=== PATIENT | male | born 1985 | race Caucasian/White ===

== ENCOUNTER 2025-08-22 13:41 | Emergency (ER) | payer MEDICAID, SELFPAY ==
--- OUTSIDE RECORDS SUMMARY | 2014-06-23 09:30 | XMS_ITS | Continuity of Care Document ---
Author Organization [facility] Address [address] [place] [address] Phone Care Team Providers Care Shop Router Name Role Phone Unavailable Unavailable Unavailable Allergies, Adverse Reactions, Alerts Substance Reaction Status Criticality No Known allergies Medications Medication Instructions Dosage Effective Dates (start - stop) Status Comments Aldara 5 % topical cream packet apply by topical route 3 times every week to the affected area(s) Not Available - Active lisinopril 20 mg tablet take 1 tablet by oral route every day 20 MG - Active atenolol 100 mg tablet take 1 tablet by oral route every day 100 MG - Active azithromycin 500 mg tablet take 2 tablet by oral route every day for 1 day once 1000 MG - No Longer Active 1gram dose provided today c med. sheet Procedures Procedure Date OFFICE/OUTPATIENT VISIT BANNER DESTRUCT B9 LESION 1-14 CHYLMD TRACH DNA AMP PROBE N.GONORRHOEAE DNA AMP PROB Advance Directives Directive Yes / No Effective Date File Name No Information Encounters Encounter Description Practice Location Reason(s) For Visit Diagnoses Date Provider Providers Copied on Encounter OFFICE/OUTPA TIENT VISIT [facility], [address] [place], [place], [id number], [place] tel:[phone] [facility] STD exposure (chief complaint) Hypertension, BenignCVA, AcuteDepressionH eadacheHigh-risk sexual behaviorCondylom a acuminatumTobacc o Abuse 3-201 4 No Information Family History Family Member Type Diagnosis Age At Onset Father Problem (finding) coronary arterioscleros is Father Problem (finding) raised blood lipids Father Problem (finding) Liver/GB CA Father Problem (finding) hypertension Father Problem (finding) Myocardial infarction Payers Payer name Insurance type Covered constitution party ID Authoryessy tijuan pablo(s) No Information Social History Type Description Quantity Date Captured Comments Alcohol Use Details No Caffeine Use Details Unknown Tobacco Use Status Smoking Status Current every day smoker Smoking Tobacco Use Details Cigarette: No Details Available Cigarette: 2 Packs per day Sex Male Vital Signs Date / Time: Height Weight BMI Pulse Rate Blood Pressure Temperature Respiratory Rate Body Surface Area Head Circumference Head Circ. Percentile Wt./Med. Percentile BMI percentile Pulse Ox Inhaled Ox 1:46 PM 67.00 in 81.647 kg (180.00 lbs) 28.1 9 kg/m eter (2) 46 /min 119/74 mm[Hg] 98.40 F 16 /min Chief Complaint And Reason For Visit From encounter dated '06/23/2014 13:30'. STD exposure (chief complaint). Description: Additional information: -partner dx c CT 2mos. ago & had Tx but pt. did not. Pt. states unprotected sex c partner. Denies penile d/c, rash, burning, but +itching near groin & bumps. Denies burning c urine. Reason For Referral Reason For Referral No Information History Of Present Illness Encounter Date Complaint History Of Prese nt Illness STD exposure Additional infor mation: -partner dx c CT 2mos. ago & had Tx but pt. did not. Pt. states unprotected sex c partner. Denies penile d/c, rash, burning, but +itching near groin & bumps. Denies burning c urine. Functional Status Date Functional Assessmen t No Information Medications Administered Medication Instructions Dosage Effective Dates (start - stop) Status Comments azithromycin 500 mg tablet take 2 tablet by oral route every day for 1 day once 1000 MG - No Longer Active 1gram dose provided today c med. sheet Instructions Date Instruction Additional Infor mation No Information Assessments Type Assessment Date No Information Mental Status Date Cognitive Assessment Orientation - [place] ed to time, place, person, situation. Patient Care Teams Name Effective Dates (start - stop) Status Members No Information
--- OUTSIDE RECORDS SUMMARY | 2024-10-05 07:15 | XMS_ITS ---
Author Organization The [facility] in [place] Address [address] [place] [address] Care Team Providers Care Call Box Wirer Name Role Phone Filomena Rosado Primary Care Provider REASON FOR VISIT f/u Encounters Encounter Location Date Provider Diagnosis [address] [place] [address] 10/05/2024 Filomena Rosado Plan Of Treatment No Information Progress Notes * Gomez COBB MDOB:1985 ( 40 yo M)Acc No.[id number]:10/05/2024 UNLOCKED PROGRESS NOTE Progress Note Patient: Anna FLORENCEc Agusto Provider: Christos Rosado M.D. :1985 A ge:39 Y S ex:Male Date:10/05/2024 [facility] Subjective: * Chief Complaints: * 1 . F/u. * Medical History: Objective: * Vitals: Assessment: Plan: * Treatment: * * Electronic signature of Filomena Rosado MD on 08/22/2025 at 02:39 PM EDT Sign off status: Pending Visit Status: C ANC (Cancelled) * Provider: Christos Rosado M.D. Date: 12/05/2023 Generated for Esther tatum/Anita/eTransmitting on: 0 08/22/2025 02:39 PM EDT
--- OUTSIDE RECORDS SUMMARY | 2024-10-12 07:30 | XMS_ITS ---
Author Organization The [facility] in [place] Address [address] [place] [address] Care Team Providers Care Business Affairs Manager Name Role Phone Filomena Rosado Primary Care Provider REASON FOR VISIT f/u resched Encounters Encounter Location Date Provider Diagnosis [address] [address] 10/12/2024 Filomena Rosado Plan Of Treatment No Information Progress Notes * Gomez COBB MDOB:1985 ( 40 yo M)Acc No.[id number]:10/12/2024 UNLOCKED PROGRESS NOTE Progress Note Patient: Gomez FLORENCE Provider: Christos Rosado M.D. :1985 A ge:39 Y S ex:Male Date:10/12/2024 [facility] Subjective: * Chief Complaints: * 1 . F/u resched. * Medical History: Objective: * Vitals: Assessment: Plan: * Treatment: * * Electronic signature of Filomena Rosado MD on 08/22/2025 at 02:39 PM EDT Sign off status: Pending Visit Status: R /S (Rescheduled) * Provider: Christos Rosado M.D. Date: 12/12/2023 Generated for Ricardai ng/Fahumerag/eTransmitting on: 0 08/22/2025 02:39 PM EDT
--- OUTSIDE RECORDS SUMMARY | 2024-10-20 06:45 | XMS_ITS ---
Author Organization The [facility] in [place] Address [address] [place] [address] Care Team Providers Care Veterinarian Assistant Name Role Phone Filomena Rosado Primary Care Provider Encounters Encounter Location Date Provider Diagnosis [address] [address] 10/20/2024 Filomena Rosado Plan Of Treatment No Information Progress Notes * Gomez COBB MDOB:1985 ( 40 yo M)Acc No.[id number]:10/20/2024 UNLOCKED PROGRESS NOTE Progress Note Patient: Anna FLORENCEc Agusto Provider: Christos Rosado M.D. :1985 A ge:39 Y S ex:Male Date:10/20/2024 [facility] Subjective: * Chief Complaints: * * Medical History: Objective: * Vitals: Assessment: Plan: * Treatment: * * Electronic signature of Filomena Rosado MD on 08/22/2025 at 02:39 PM EDT Sign off status: Pending Visit Status: R /S (Rescheduled) * Provider: Christos Rosado M.D. Date: 12/20/2023 Generated for Esther tatum/Anita/eTriccardosmitting on: 0 08/22/2025 02:39 PM EDT
--- OUTSIDE RECORDS SUMMARY | 2025-03-16 07:00 | XMS_ITS ---
Author Organization [facility] in [place] Address [address] [place] [address] Care Team Providers Care Social Media Community Manager Name Role Phone Fiolmena Rosado Primary Care Provider REASON FOR VISIT 3-4 mo f/u Encounters Encounter Location Date Provider Diagnosis [address] [address] 03/16/2025 Filomena Rosado Plan Of Treatment No Information Progress Notes * Gomez COBB MDOB:1985 ( 40 yo M)Acc No.[id number]:03/16/2025 UNLOCKED PROGRESS NOTE Progress Note Patient: Gomez FLORENCE Provider: Christos Rosado M.D. :1985 A ge:40 Y S ex:Male Date:03/16/2025 [facility] Subjective: * Chief Complaints: * 1 . 3-4 mo f/u. * Medical History: Objective: * Vitals: Assessment: Plan: * Treatment: * * Electronic signature of Filomena Rosado MD on 08/22/2025 at 02:39 PM EDT Sign off status: Pending Visit Status: N /S N/C (No Show/No Charge) * Provider: Christos Rosado M.D. Date: 0 03/16/2025 Generated for Printi ng/Faxing/eTransmitting on: 0 08/22/2025 02:39 PM EDT
[2025-08-22 13:46] VITALS: BP 136/93; PULSE 85; TEMP 37.2; O2SAT 98; BMI 32.9
--- NOTE | 2025-08-22 14:00 | CT_ITS ---
The [address] [address] Patient Name: IVAN LOZA MRN: [id number] date: 1985 Sex: M Assigned Patient Location: ED.MAIN Current Patient Location: ED.MAIN Accession/Order Number: [id number] Exam Date: 08/22/2025 14:57 Report Date: 08/22/2025 15:11 At the request of: JESSI XAVIER MD Procedure: CT head/brain wo con CT BRAIN WITHOUT CONTRAST: CLINICAL HISTORY: Head injury syncope headache COMPARISON: None TECHNIQUE: Contiguous axial unenhanced images were obtained through the brain. This CT exam was performed using one or more following dose reduction techniques: Automated exposure control, adjustment of the mA and/or kV according to patient size, or use of iterative reconstruction technique. FINDINGS: There is no evidence of midline shift, intra or extra-axial fluid collection, hemorrhage or CT evidence of acute large vascular stroke. Right frontal encephalomalacia likely sequelae of prior ischemic insult. Visualized intraorbital contents appear unremarkable. Fgkr-ah-qlrmghoi sinus mural thickening. Minimal polypoid changes left maxillary sinus. Mastoids are clear. The surrounding soft tissues are normal. CT/CT head/brain wo con IMPRESSION: NO ACUTE INTRACRANIAL ABNORMALITY. Impression dictated by: Yg Tomlinson M.D. 08/22/2025 3:11 PM Dictation Location: [place] [address] Electronically authenticated by: [id number] Y Date: 08/22/2025 15:11
--- NOTE | 2025-08-22 14:00 | ECG_ITS ---
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 Measurements Intervals [place] Rate: 80 P: 55 [place]: 152 QRS: 56 QRSD: 98 T: 61 QT: 370 QTc: 406 Interpretive Statements 1100 Sinus rhythm 9110 normal ECG No previous ECG available for comparison Electronically Signed On 08-22-2025 14:02:44 EDT by ORLIN CARUSO M.D.
--- NOTE | 2025-08-22 14:01 | ED.GENADUL1 ---
HPI HPI - General Adult General Chief complaint: Syncope Stated complaint: VERTIGO Time Seen by Provider: 08/22/25 13:51 Source: patient and family Mode of arrival: ambulance Limitations: no limitations History of Present Illness HPI narrative: 40-year-old male presented to the emergency department for an injury to his head. He was reaching under a car seat to get something and when he came up he hit the right side of his head on the corner of the door causing a laceration. His states he then went down. She states he did not pass out. No vomiting or unusual behavior and he does not have any neck pain. No other injury was sustained and this happened just before coming into the emergency department. Related Data Allergies Allergy/AdvReac Type Severity Reaction Status Date / Time venlafaxine (From Effexor) Allergy Severe syncope Verified 08/22/25 13:46 Review of Systems ROS Narrative A ten point review of systems is negative except as noted above. PFSH PFSH Social History Little interest or pleasure in doing things: not at all Feeling down, depressed, or hopeless: not at all Exam Narrative Exam Narrative: Nurses note and vital signs reviewed and patient is not hypoxic. General: The patient appears in no apparent distress. Patient is resting on cart. Skin: Warm, dry, no pallor noted. There is no rash noted. Head: Normocephalic, head has circumferential dressing in place. Upon removal he has a 2.5 cm laceration in the right temporal area. No other wounds are present. Eye: Normal conjunctiva, no drainage Ears, Nose, Mouth, and Throat: oral mucosa is moist. Nares patent. Cardiovascular: Regular Rate and Rhythm Respiratory: Patient is in no distress, no accessory muscle use, lungs are clear to auscultation, no wheezing, rales or rhonchi Back: non-tender, including the cervical spine GI: Soft and nontender Musculoskeletal: The patient has no evidence of calf tenderness, no pitting edema, symmetrical pulses noted bilaterally Neurological: A&O, normal speech; upper and lower extremity strength 5 out of 5 and symmetric Psychiatric: Cooperative Constitutional Vital Signs, click to edit/add: Last Vital Signs Temp 98.9 F 08/22/25 13:46 Pulse 85 08/22/25 13:46 Resp 18 08/22/25 13:46 BP 136/93 H 08/22/25 13:46 Pulse Ox 98 08/22/25 13:46 O2 Del Method Room Air 08/22/25 13:46 Course Vital Signs Vital signs: Vital Signs Temperature 98.9 F 08/22/25 13:46 Pulse Rate 85 08/22/25 13:46 Respiratory Rate 18 08/22/25 13:46 Blood Pressure 136/93 H 08/22/25 13:46 Pulse Oximetry 98 08/22/25 13:46 Oxygen Delivery Method Room Air 08/22/25 13:46 Temperature 98.9 F 08/22/25 13:46 Pulse Rate 85 08/22/25 13:46 Respiratory Rate 18 08/22/25 13:46 Blood Pressure 136/93 H 08/22/25 13:46 Pulse Oximetry 98 08/22/25 13:46 Oxygen Delivery Method Room Air 08/22/25 13:46 Medical Decision Making MDM Narrative Medical decision making narrative: CT brain shows no acute findings. 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 The wound has been repaired and sutures are to be removed in 7-10 days. Treatment diagnosis and follow-up were discussed with the patient. Differential Diagnosis Differential Diagnosis: Laceration, contusion, intracranial hemorrhage Imaging Data CT scan - head: Radiologist's impression: ITS Impressions Head CT 08/22/25 14:00 IMPRESSION: NO ACUTE INTRACRANIAL ABNORMALITY. Impression dictated by: Yg Tomlinson M.D. 08/22/2025 3:11 PM Dictation Location: [place] [address] Electronically authenticated by: [id number] Y Date: 08/22/2025 15:11 ECG Data Attestation: I personally reviewed and interpreted this ECG as follows: (EKG on my interpretation shows sinus rhythm with rate of 80 and no acute change) Discharge Plan Discharge Chief Complaint: Syncope Clinical Impression: Facial laceration Patient Disposition: Home, Self-Care Time of Disposition Decision: 15:25 Condition: Good Mode of Transportation: Private Vehicle Print Language: Puerto Rican Instructions: Laceration (ED) Additional Instructions: Sutures to be removed in 7 to 10 days. Referrals: Physician,Non-Staff, MD [Primary Care Provider] - 1 week
--- OUTSIDE RECORDS SUMMARY | 2025-08-22 14:39 | XMS_ITS | Encounter Summary ---
Author Organization [facility] Address [id number] [address] [place] [address] Care Team Providers Care Vp Delivery Name Role Phone Filomena Rosado MD Primary Care Provide r Reason for Visit * Reason Onset Date Comments reschd appt 06/07/2021 Encounter Details Date Type Department Care Team (Late st Contact Info) Description 06/07/[address] [facility] Neurology [address] [place] [address] Yen Shaikh reschd appt Social History Tobacco Use Types Packs/Day Years Used Date Smoking Tobacco: Every Day Cigarettes Smokeless Tobacco: Never Alcohol Use Standard Drinks/Week Comments No 0 (1 standard drink = 0.6 oz pur e alcohol) AUDIT-C Answer Date Recorded Frequency of Alcohol Consumption Never 02/03/2019 Average Number of Drinks Not on file 019 Frequency of Binge Drinking Not on file 04/2019 Childcare Answer Date Recorded Childcare Unknown 05/12/2019 Employment Answer Date Recorded Employment Unknown 05/12/2019 Purpose - Life Answer Date Recorded Purpose and direction in life Unknown Sex and Gender Information Value Date Recorded Sex Assigned at Not on file Legal Sex Male 5:14 PM EDT Gender Identity Not on file Sexual Orientation Not on file documented as of this encounter Miscellaneous Notes * Telephone Encounter - Yne Shaikh - 06/07/2021 8:56 AM EDT Patient's appointment with Dr. Swann on 06/22/21 needs to be rescheduled at this time due to schedule change. If patient calls back, please reschedule to one of the available days below or to next available appointment + add to wait list. Left voicemail on spouse's number and sent postcard June 12- 830 am or 9am/915am (offer 830am first) June 13-830 am or 9a/915am (offer 830am first) June 14- 830 am or 9a/5am (offer 830am first) June 15- 830 am or /5am (offer 830am first) June 16-830 am or 9a/5am (offer 830am first) June 27- AM (All morning ok but no patients later than 11am) June 30 - 830am or /5am (offer 830am first) documented in this encounter Plan of Treatment Not on file documented as of this encounter Visit Diagnoses Not on filedocumented in this encounter Care Teams Vp Delivery Relationship Specialty Start Date End Date César-Filomena Vazquez MD PCP - General Internal Medicine 03/04/24 documented as of this encounter
--- OUTSIDE RECORDS SUMMARY | 2025-08-22 14:39 | XMS_ITS | Clinical Summary ---
Author Organization [employer] [facility] tem Address [id number] [address] [place] [address] Care Team Providers Care Vulnerability Assessment Analyst Name Role Phone Filomena Rosado MD Primary Care Provide r Allergies Active Allergy Reactions Criticality Noted Date Comments Venlafaxine 08/17/2018 Black out Medications * This document contains information received from the source organization and may not represent a complete record from that organization. ranitidine (ZANTAC) 150 mg tablet Take 0.5 tablets (75 mg total) by mouth 2 (two) times a day as needed for heartburn or indigestion. Active loratadine (CLARITIN) 10 mg tablet Take 1 tablet (10 mg total) by mouth nightly. 8 Active SUMAtriptan (IMITREX) 50 mg tablet Take one tablet at onset of migraine. Repeat in 2hrs if needed. Limit 2 tabs/24hrs, 2 days/week. 9 tablet 3 9 Active lisinopriL (PRINIVIL,ZESTR IL) 10 mg tablet Take 1 tablet (10 mg total) by mouth in the morning. 3 Active prazosin (MINIPRESS) 2 mg capsule Take 1 capsule (2 mg total) by mouth nightly. Active traZODone (DESYREL) 100 mg tablet Take 1 tablet (100 mg total) by mouth nightly. Active cariprazine (VRAYLAR) 1.5 mg capsule Take 1 capsule (1.5 mg total) by mouth in the morning. Active albuterol (PROVENTIL HFA;VENTOLIN HFA) 90 mcg/actuation inhaler Inhale 1 puff every 4 (four) hours as needed for wheezing or shortness of breath. Active fluticasone propion-salmete roL (ADVAIR HFA) 115-21 mcg/actuation inhaler Inhale 2 puffs 2 (two) times a day as needed (rarely uses). Active hydrOXYzine (ATARAX) 25 mg tablet Take 1 tablet (25 mg total) by mouth 3 (three) times a day as needed for anxiety. 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 03/24/2015 Abnormal electrocardiogram 03/24/2015 Benign essential hypertension 03/23/2015 Encounters Date Type Department Care Team Description 05/26/2025 11:11 AM EDT - 05/26/2025 1:27 PM EDT Emergency [facility] - Emergency Department [address] [place] [id number] Martinez Denise MD Subacute frontal sinusitis (Primary Dx) Discharge Disposition: Home 05/26/2025 Travel from Last 3 Months Immunizations Immunization Administration Dates Next Due H1N1 Nasal 10/30/2009 Influenza Tri-valent Im, Adult 09/07/2024 Influenza, Injectable, quadrivalent (PF) 020,01/27/2018 Pneumococcal Polysaccharide 01/27/2018 Tdap 06/10/2019,01/27/2018 Family History Medical History Relation Name Comments Heart disease Father Heart disease Mother Bipolar disorder Sister Relation Name Status Comments Father Alive Mother Sister Social History Tobacco Use Types Packs/Day Years Used Date Smoking Tobacco: Every Day Cigarettes 1 17.7 Started: 2007 Smokeless Tobacco: Never Tobacco Cessation:Ready to Q uit: Not Asked; Counseling Given: Not Answered Alcohol Use Standard Drinks/Week Comments Not Currently 0 (1 standard drink = 0.6 oz pur e alcohol) [facility] Utilities Answer Date Recorded In the past 12 months has e compareit4me, gas, oil, or water [employer] threatened to shut off services in your home? No 02/20/2025 AUDIT-C Answer Date Recorded Q1: How often do you have a drink containing alcohol? Never 02/20/2025 Q2: How many drinks containi ng alcohol do you have on a typical day when you are drinking? Patient does not drink Q3: How often do you have si x or more drinks on one occasion? Never 02/20/2025 PHQ-2 Answer Date Recorded Total Score 4 02/20/2025 PRAPARE - Transportation Answer Date Re corded In the past 12 months, has l ack of transportation kept you from medical appointments or from getting medications? No 01/31 In the past 12 months, has l ack of transportation kept you from meetings, work, or from getting things needed for daily living? No 02/20/2025 Housing Instability Answer Date Recorde d Are you worried or concerned that in the next two months you may not have stable housing that you own, rent or stay in as a part of a household? Yes 02/20/2025 Childcare Answer Date Recorded Childcare Unknown 05/12/2019 Employment Answer Date Recorded Employment Unknown 05/12/2019 Hunger Screening Answer Date Recorded Within the past 12 months we worried whether our food would run out before we got money to buy more. Never True 05/26/2025 Within the past 12 months th e food we bought just didn't last and we didn't have money to get more. Never True 05/26/2025 Purpose - Life Answer Date Recorded Purpose and direction in life Unknown Sex and Gender Information Value Date Recorded Sex Assigned at Not on file Legal Sex Male 5:14 PM EDT Gender Identity Not on file Sexual Orientation Not on file Last Filed Vital Signs Vital Sign Reading Time Taken Comments Blood Pressure 121/96 05/26/2025 1:25 PM EDT Pulse 86 05/26/2025 11:58 AM EDT Temperature 37.2 C (99 F) 05/26/2025 9:32 AM EDT Respiratory Rate 16 05/26/2025 1:25 PM EDT Oxygen Saturation 96% 05/26/2025 1:25 PM EDT Inhaled Oxygen Concentration - - Weight 97.5 kg (215 lb) 05/26/2025 9:32 AM EDT Height 170.2 cm (5' 7 ) 05/26/2025 9:32 AM EDT Body Mass Index 33.67 05/26/2025 9:32 AM EDT Plan of Treatment Health Maintenance Due Date Last Done Comments Tobacco Counseling 1984 Adult BMI Follow Up Plan 02/13/2002 Influenza Vaccine 08/02/2025 09/07/2024, , 01/27/2018, Additional history exists Depression Screening 02/20/2026 02/20/2025 Adult BMI Screening 05/26/2026 05/26/2025 Tobacco Screening 05/26/2026 05/26/2025 DTaP,Tdap and Td Vaccines (3 - Td or Tdap) 06/10/2029 06/10/2019, 01/27/2018 Goals Goal Patient Goal Type Associated Problems Recent Progress Patient-Stated? Author transition to homeless custodial at discharge General Yes Gail Herman LSW Note: Evaluation of progress towards goal: transition to homeless custodial at discharge Medical Devices Not on file Procedures Procedure Name Priority Date/Time Associated Diagnosis Comments TROP I, HIGH SENSITIVITY 1 HOUR STAT 05/26/2025 12:32 PM EDT SARS/FLU A+B/RSV BY NAAT/MOLECULAR (M4RT COLLECTION TUBE) STAT 05/26/2025 12:06 PM EDT XR CHEST 2 VWS STAT 05/26/2025 11:50 AM EDT TROPONIN I, HIGH SENSITIVITY 0 HOUR STAT 05/26/2025 11:32 AM EDT TROPONIN I, HIGH SENSITIVITY 0 HOUR STAT 05/26/2025 11:32 AM EDT COMPREHENSIVE METABOLIC PANEL STAT 05/26/2025 11:32 AM EDT CBC WITH AUTO DIFFERENTIAL STAT 05/26/2025 11:32 AM EDT CARBON MONOXIDE SCREEN STAT 11:16 AM EDT ECG 12-LEAD STAT 05/26/2025 9:55 AM EDT from Last 3 Months Results * Troponin I, High Sensitivity 1 Hour (05/26/2025 12:32 PM EDT) TROPONIN I, HIGH SENSITIVITY 2 <21 ng/L 05/26/2025 1:22 PM EDT [facility] Blood Venous blood / Unknown 05/26/2025 12:32 PM EDT 05/26/2025 12:32 PM EDT us Elder Yunormaaga DO LAB BLOOD ORDERABLES Final Resul t [facility] [address] [place] [address], [place] * SARS/FLU A+B/RSV by NAAT/Molecular (M4RT Collection Tube) (05/26/2025 12:06 PM EDT) Pathologist [facility] FLU A PCR Negative Negative 05/26/2025 1:12 PM EDT [facility] FLU B PCR Negative Negative 05/26/2025 1:12 PM EDT [facility] RSV BY PCR Negative Negative 05/26/2025 1:12 PM EDT [facility] SARS COV 2 BY PCR Not Detected Not Detected 05/26/2025 1:12 PM EDT [facility] Swab Nasopharyngeal structure / Unknown 05/26/2025 12:06 PM EDT 05/26/2025 12:19 PM EDT Narrative [facility] - 05/26/2025 1:12 PM EDT The Xpert Xpress SARS-CoV-2/Flu/RSV Plus test is a rapid, multiplexed real-time RT-PCR test intended for the simultaneous qualitative detection and differentiation of SARS-CoV-2, influenza A, influenza B and respiratory syncytial virus (RSV) viral RNA from individuals suspected of respiratory viral infection consistent with COVID-19 by Their healthcare provider. This test has not been validated in asymptomatic patients. The Xpert Xpress SARS-CoV-2 test is intended for use by qualified and trained operators who are performing tests using either Chevia or YapTime systems and is limited to laboratories that meet the CLIA requirements to perform high and moderate complexity tests. The Xpert Xpress SARS-CoV-2/Flu/RSV Plus is only for use under the Food and Drug Administration's Emergency Use Authorization. Results are for the simultaneous detection and differentiation of SARS-CoV-2, influenza A, influenza B and RSV nucleic acids in clinical specimens. SARS-CoV-2, influenza A, influenza B and RSV RNA identified by this test are generally detectable in upper respiratory samples during the acute phase of infection. Positive results are Indicative of the presence of the identified virus, but do not rule out bacterial infection or co-infection with other pathogens not detected by this test. Clinical correlation with patient history and other diagnostic information is necessary to determine patient infection status. The agent detected may not be the definite cause of disease. Negative results do not preclude SARS-CoV-2, influenza A, influenza B and RSV infection and should not be used as the sole basis for treatment or other patient management decisions. Negative results must be combined with clinical observations, patient history and epidemiological information. An Invalid result may occur with specimen-associated inhibition unable to be resolved with specimen repeat. Fact Sheet for Healthcare Providers: https://www.fda.gov/media/571638/download Fact Sheet for Patients: https://www.fda.gov/media/647719/download Elder King DO MICROBIOLOGY - GENERAL ORDERABLE S Final Result [facility] [address] [place] [address], * X-ray chest 2 views (05/26/2025 11:50 AM EDT) Anatomical Region Laterality Modality Body, Chest N/A Computed Radiogr aphy 05/26/2025 11:5 2 AM EDT Narrative 05/26/2025 11:52 AM EDT XR CHEST 2 VWS History: . COPD - SOB. Comparison: None Impression: No acute pulmonary process. No pneumothorax or pleural effusion. Nonenlarged heart. Finalized by Maycol Feliciano MD on 05/26/2025 11:52 AM Procedure Note Maycol Feliciano MD - 05/26/2025 XR CHEST 2 VWS History: . COPD - SOB. Comparison: None Impression: No acute pulmonary process. No pneumothorax or pleural effusion. Nonenlarged heart. Finalized by Maycol Feliciano MD on 05/26/2025 11:52 AM [facility] IMG DIAGNOSTIC IMAGING ORDERABLE S Final Result * Troponin I, High Sensitivity 0 Hour (05/26/2025 11:32 AM EDT) [facility] TROPONIN I, HIGH SENSITIVITY 3 <21 ng/L 05/26/2025 12:09 PM EDT [facility] Blood Venous blood / Unknown 05/26/2025 11:32 AM EDT 05/26/2025 11:32 AM EDT [facility] LAB BLOOD ORDERABLES Final Resul t [facility] [address] [place] [address], * (ABNORMAL) CBC auto differential (05/26/2025 11:32 AM EDT) [facility] WBC 12.9(H) 4 - 11 x10E9/L 05/26/2025 11:52 AM EDT [facility] RBC Count 4.90 4.1 - 5.7 X10E12/L 05/26/2025 11:52 AM EDT [facility] Hemoglobin 15.3 13 - 17 g/dL 05/26/2025 11:52 AM EDT [facility] Hematocrit 44.9 39 - 50 % 05/26/2025 11:52 AM EDT [facility] MCV 92 80 - 100 fL 05/26/2025 11:52 AM EDT [facility] MCH 31.3 27 - 34 pg 05/26/2025 11:52 AM EDT [facility] MCHC 34.1 32 - 36 g/dL 05/26/2025 11:52 AM EDT [facility] RDW 13.2 11.5 - 15 % 05/26/2025 11:52 AM EDT [facility] Platelet Count 279 150 - 450 X10E9/L 05/26/2025 11:52 AM EDT [facility] MPV 7.3 7 - 12 fL 05/26/2025 11:52 AM EDT [facility] Neutrophils % 73.0 % 05/26/2025 11:52 AM EDT [facility] Lymphocytes % 18.7 % 05/26/2025 11:52 AM EDT [facility] Monocytes % 5.9 % 05/26/2025 11:52 AM EDT [facility] Eosinophils % 1.7 % 05/26/2025 11:52 AM EDT [facility] Basophils % 0.7 % 05/26/2025 11:52 AM EDT [facility] Neutrophils Absolute (A) 9.5(H) 1.5 - 6.6 10*3/uL 05/26/2025 11:52 AM EDT [facility] Lymphocytes Absolute 2.4 1.0 - 3.5 10*3/uL 05/26/2025 11:52 AM EDT [facility] Monocytes Absolute 0.8 0.0 - 0.9 10*3/uL 05/26/2025 11:52 AM EDT [facility] Eosinophils Absolute 0.2 0.0 - 0.4 10*3/uL 05/26/2025 11:52 AM EDT [facility] Basophils Absolute 0.1 0.0 - 0.2 10*3/uL 05/26/2025 11:52 AM EDT [facility] Differential Type AUTOMATED DIFFERENTIAL 05/26/2025 11:52 AM EDT [facility] Blood Venous blood / Unknown 05/26/2025 11:32 AM EDT 05/26/2025 11:39 AM EDT us Elder Yuminaga DO LAB BLOOD ORDERABLES Final Resul t [facility] [address] [place] [id number], * (ABNORMAL) Comprehensive metabolic panel (05/26/2025 11:32 AM EDT) SODIUM 139 134 - 146 mmol/L 05/26/2025 12:03 PM EDT [facility] POTASSIUM 4.3 3.5 - 5.0 mmol/L 05/26/2025 12:03 PM EDT [facility] CHLORIDE 107 98 - 109 mmol/L 05/26/2025 12:03 PM EDT [facility] CARBON DIOXIDE 24 22 - 32 mmol/L 05/26/2025 12:03 PM EDT [facility] ANION GAP 8 5 - 15 mmol/L 05/26/2025 12:03 PM EDT [facility] BLOOD UREA NITROGEN 10 5 - 23 mg/dL 05/26/2025 12:03 PM EDT [facility] CREATININE 0.98 0.60 - 1.30 mg/dL 05/26/2025 12:03 PM EDT [facility] Comment:METHOD TRACEABLE TO IDMS STANDARD GLUCOSE 130(H) 65 - 99 mg/dL 05/26/2025 12:03 PM T [facility] CALCIUM 9.3 8.5 - 10.5 mg/dL 05/26/2025 12:03 PM EDT [facility] TOTAL PROTEIN 7.0 6.0 - 8.0 g/dL 05/26/2025 12:03 PM EDT [facility] ALBUMIN 4.4 3.2 - 5.3 g/dL 05/26/2025 12:03 PM EDT [facility] ALKALINE PHOSPHATASE 73 39 - 130 U/L 05/26/2025 12:03 PM T [facility] AST 17 <=41 U/L 05/26/2025 12:03 PM EDT [facility] ALT 14 <=40 U/L 05/26/2025 12:03 PM EDT [facility] BILIRUBIN,TOTAL 0.5 0.3 - 1.2 mg/dL 05/26/2025 12:03 PM EDT [facility] EGFR Non-Race Dependent >90 >=60 ml/min/1.7 3sq.m 05/26/2025 12:03 PM EDT [facility] Comment: Reported eGFR is based on the CKD-EPI 2020 equation that does not use a race coefficient. Blood Venous blood / Unknown 05/26/2025 11:32 AM EDT 05/26/2025 11:39 AM EDT Elder King DO LAB BLOOD ORDERABLES Final Resul t [facility] [address] [place] [address], * ECG 12 lead (05/26/2025 9:55 AM EDT) 05/26/2025 9:55 AM EDT Narrative [facility] - 05/26/2025 12:00 PM EDT Martinez Denise MD ECG ORDERABLES Final Result [facility] from Last [address] [place] [address] [place] [address] MEDICAID Advance Directives * Full Code (Latest Code Status on File) Date Activated Date Inactivated Comments 02/20/2025 4:49 PM 02/22/2025 7:08 PM * Full Code Date Activated Date Inactivated Comments 02/03/2019 9:25 PM 02/09/2019 2:37 PM Care Teams Vulnerability Assessment Analyst Relationship Specialty Start Date End Date César-Filomena Vazquez MD PCP - General Internal Medicine 03/04/24
--- OUTSIDE RECORDS SUMMARY | 2025-08-22 14:40 | XMS_ITS | Encounter Summary ---
Author Organization [facility] Address [id number] [address] [place] [address] Care Team Providers Care Machine Shop Repair Technician Name Role Phone Filomena Rosado MD Primary Care Provide r Encounter Details Date Type Department Care Team (Late st Contact Info) Description 12/10/2017 Telephone [facility] [address] [phone] Mayito Cross MD [address] [place] [address] Social History Tobacco Use Types Packs/Day Years Used Date Smoking Tobacco: Never Assessed Sex and Gender Information Value Date Recorded Sex Assigned at Not on file Legal Sex Male 5:14 PM EDT Gender Identity Not on file Sexual Orientation Not on file documented as of this encounter Plan of Treatment Not on file documented as of this encounter Visit Diagnoses Not on filedocumented in this encounter Additional Health Concerns Infection Onset Date Last Indicated Resolved Time MRSA Comment:[place] (11/24/08) PCR negative x2 (02/03/19 & 02/04/19) 01/15/2012 01/15/20122018 7:13 AM EST documented as of this encounter Care Teams Machine Shop Repair Technician Relationship Specialty Start Date End Date Filomena Rosado MD PCP - General Internal Medicine 03/04/24 documented as of this encounter
--- OUTSIDE RECORDS SUMMARY | 2025-08-22 14:40 | XMS_ITS | Encounter Summary ---
Author Organization [facility] [employer] [facility] Address [id number] [address] [place] [address] Care Team Providers Care News Broadcaster Name Role Phone Filomena Rosado MD Primary Care Provide r Encounter Details Date Type Department Care Team (Late st Contact Info) Description 11/26/2017 Telephone [facility] [address] [phone] Mayito Cross MD [address] [place] [address] Social History Tobacco Use Types Packs/Day Years [...] documented as of this encounter Care Teams News Broadcaster Relationship Specialty Start Date End Date Filomena Rosado MD PCP - General Internal Medicine 03/04/24 documented as of this encounter
[2025-08-22] MEDS: ACETAMINOPHEN 325 MG TABLET 650 MG PO (15:41)
== END 2025-08-22 15:41 | disposition home or self-care (01) ==
PROVIDERS: Emergency Provider Emergency Medicine
DX: S01.81XA Laceration without foreign body of other part of head, initial encounter (principal); W22.8XXA Striking against or struck by other objects, initial encounter
CPT/HCPCS: 12011; 70450; 93005; 99284